=== PATIENT | male | born 1935 | race Caucasian/White ===

== ENCOUNTER 2017-03-08 06:50 | Outpatient (CLI) | payer OTHER, BC ==
[2017-03-08] MEDS ORDERED: DIATR MEGLU/DIATRIZ SOD 30 ML SOLUTION PO ONE (07:18)
== END 2017-03-08 17:50 | disposition home or self-care (01) ==
LOC: SCT 06:50
PROVIDERS: ATTEND Internal Medicine
DX: K57.30 Diverticulosis of large intestine without perforation or abscess without bleeding (principal); K42.9 Umbilical hernia without obstruction or gangrene; N28.1 Cyst of kidney, acquired; R16.1 Splenomegaly, not elsewhere classified; R16.0 Hepatomegaly, not elsewhere classified; Z96.643 Presence of artificial hip joint, bilateral
CPT/HCPCS: 74176; Q9964

== ENCOUNTER 2018-03-06 10:17 | Emergency (ER) | payer OTHER, MEDICARE ==
[~2018-03-06] VITALS: Ht 167.6 cm; Wt 95.3 kg
[2018-03-06 10:25] VITALS: BP_SYST 156
[2018-03-06] MEDS ORDERED: CALC-1036 PO (10:40)
[2018-03-06] MEDS ORDERED: ROSU10TA PO (10:40)
[2018-03-06] MEDS ORDERED: ASPI-1063 PO (10:40)
[2018-03-06] MEDS ORDERED: LOSA100T11 PO (10:40)
[2018-03-06] MEDS ORDERED: TAMS-11 PO (10:40)
[2018-03-06] MEDS ORDERED: GLIP5TAB13 PO (10:40)
[2018-03-06] MEDS ORDERED: SODI650T PO (10:40)
[2018-03-06] MEDS ORDERED: ERGO500043 PO (10:40)
[2018-03-06] MEDS ORDERED: CYAN100067 PO (10:40)
[2018-03-06] MEDS ORDERED: NOR10 PO (10:40)
[2018-03-06 11:24] VITALS: BP_SYST 156
== END 2018-03-06 11:25 | disposition home or self-care (01) ==
LOC: SED 10:17
DX: S30.813A Abrasion of scrotum and testes, initial encounter (principal); E11.22 Type 2 diabetes mellitus with diabetic chronic kidney disease; N18.9 Chronic kidney disease, unspecified; Z88.5 Allergy status to narcotic agent; Z85.46 Personal history of malignant neoplasm of prostate; Z79.899 Other long term (current) drug therapy; X58.XXXA Exposure to other specified factors, initial encounter; Y93.E1 Activity, personal bathing and showering; Y92.091 Bathroom in other non-institutional residence as the place of occurrence of the external cause; Y99.8 Other external cause status
CPT/HCPCS: 99283

== ENCOUNTER 2018-12-23 08:52 | Outpatient (CLI) | payer OTHER, MEDICARE ==
[~2018-12-23 08:52] MED LIST: ASPI-1153 PO; CALC-1036 PO; CYAN100010 PO; ERGO500020 PO; GLIP5TAB13 PO; LOSA100T3 PO; NOR10 PO; ROSU10TA PO; SODI650T PO; TAMS-11 PO
== END 2018-12-23 21:22 | disposition home or self-care (01) ==
LOC: SUS 08:52
PROVIDERS: ATTEND Internal Medicine
DX: N28.1 Cyst of kidney, acquired (principal); R53.81 Other malaise
CPT/HCPCS: 76770

== ENCOUNTER 2019-07-03 13:35 | Outpatient (CLI) | payer OTHER, MEDICARE ==
[~2019-07-03 13:35] MED LIST changes: -ROSU10TA PO; +ROSU10TA2 PO
== END 2019-07-03 21:24 | disposition home or self-care (01) ==
LOC: SRD 13:35
DX: C90.00 Multiple myeloma not having achieved remission (principal); I67.2 Cerebral atherosclerosis
CPT/HCPCS: 70260-TC; 72110; 72170-TC

== ENCOUNTER 2020-06-01 19:28 | Inpatient (IN) | payer OTHER, MEDICARE, SELFPAY ==
[~2020-06-01] VITALS: Ht 165.1 cm; Wt 93.0 kg
[~2020-06-01 19:28] MED LIST changes: -ASPI-1153 PO; +ASPI-1393 PO
[2020-06-01 19:38] VITALS: BP_SYST 157
--- NOTE | 2020-06-01 20:10 | NUR ---
Guido mckenzie in [facility] - 06/01/20 at 2252 by KAMILA FREDDY Stark at bedside examining patient.
[2020-06-01] MEDS ORDERED: PANTOPRAZOLE SODIUM 40 MG/VIAL (PROTONIX) IVP ONE ×2 (20:15→23:00)
--- NOTE | 2020-06-01 20:49 | NUR ---
Placed in room 03 . Placed on monitoring manager, blood pressure machine and pulse oximeter. To gown for exam. Side rails up.
--- NOTE | 2020-06-01 20:50 | NUR ---
ER Dr. Stark at bedside examining patient.
--- NOTE | 2020-06-01 20:55 | NUR ---
Pt presents to the ER for GI bleeding and low hemoglobin as per pt's PCP. Denies headache, n/v/d, sick contacts. Pt has hx of codeine. Pt brought in labs with him.Pt states he has SOB whgen walking.
[2020-06-01 20:56] LABS: BASOPHILS # (AUTO) 0.1 K/uL (0.0-0.2); BASOPHILS % (AUTO) 0.8 % (0.0-2.0); EOSINOPHILS # (AUTO) 0.2 K/uL (0.0-0.4); EOSINOPHILS % (AUTO) 1.9 % (0.0-4.0); LYMPHOCYTES % (AUTO) 11.3 % (20.5-51.5); MEAN CORPUSCULAR HEMOGLOBIN 31 pg (27-31); MEAN CORPUSCULAR HGB CONC 33 % (32-36); MEAN CORPUSCULAR VOLUME 94 fL (79.0-98.0); MONOCYTES # (AUTO) 0.8 K/uL (0.0-1.0); MONOCYTES % (AUTO) 8.7 % (1.7-9.3); NEUTROPHILS # (AUTO) 6.7 K/uL (1.8-7.7); NEUTROPHILS % (AUTO) 77.3 % (40.0-70.0); PLATELET COUNT (AUTO) 329 K/uL (130-430); RED BLOOD CELL COUNT(AUTO) 2.04 MIL/uL (4.2-6.2); RED CELL DISTRIBUTION WIDTH 15.7 % (9.0-15.0); WHITE BLOOD COUNT (AUTO) 8.7 K/uL (4.8-10.8)
--- NOTE | 2020-06-01 21:00 | NUR ---
# 20 gauge angiocath placed to r hand . Use of asceptic technique. Opsite placed over site. Blood return noted. Flushed with 10 cc of normal saline. No evidence of infiltration noted. Patient tolerated well.
[2020-06-01 21:10] LABS: ANION GAP 10 (5-15); CALCIUM 8.9 mg/dL (8.4-11.0); CHLORIDE 103 mmol/L (98-107); CREATININE 3.23 mg/dL (0.55-1.30); GLUCOSE 135 mg/dL (70-99); POTASSIUM 4.6 mmol/L (3.5-5.1); SODIUM SERUM 137 mmol/L (136-145); UREA NITROGEN, BLOOD 51 mg/dL (8-21)
[2020-06-01 21:12] LABS: PROTHROMBIN TIME 9.9 SECS (9.5-12.5)
[2020-06-01 21:16] LABS: ALANINE AMINOTRANSFERASE 25 U/L (12-78); ASPARTATE AMINOTRANSFERASE 15 U/L (10-37); TOTAL BILIRUBIN 0.2 mg/dL (0.0-1.0)
[2020-06-01 21:30] LABS: HEMOGLOBIN 6.4 g/dL (14.0-18.0)
[2020-06-01 21:31] LABS: HEMATOCRIT 19.2 % (36-54)
--- NOTE | 2020-06-01 21:50 | NUR ---
Patient will be admitted to care of Dr Bright. Admitted to TELE unit. Belongings list completed. Complete and up to date summary report printed. SBAR report to be given at bedside with opportunity for questions.
--- NOTE | 2020-06-01 22:00 | NUR ---
CONSENT AND BLOOD FORMS IN CHART, DONE BY LEONEL SPENCER.
[2020-06-01] MEDS ORDERED: ROSU20TA32 PO (22:08)
[2020-06-01] MEDS ORDERED: CALC-1263 PO (22:08)
[2020-06-01] MEDS ORDERED: METR500T PO (22:08)
[2020-06-01] MEDS ORDERED: CIPR-211 PO (22:08)
[2020-06-01] MEDS ORDERED: FLO44 INH (22:08)
--- NOTE | 2020-06-01 22:08 | NUR ---
Medication reconciliation completed with information provided by Dr Bright. Any prior medication reconciliation on file was reviewed and corrected.
[2020-06-01 22:16] LABS: TOTAL IRON BIND. CAPACITY 255 ug/dL (250-450)
--- NOTE | 2020-06-01 22:51 | NUR ---
Dr. Bright at bedside examining patient.
[2020-06-01] MEDS ORDERED: ACETAMINOPHEN 325 MG TABLET PO PRN (23:00)
[2020-06-01] MEDS ORDERED: POTASSIUM CHLORIDE 10 MEQ in NACL 0.9% 1,000 ML IV SCH (23:00)
[2020-06-01] MEDS ORDERED: DIPHENHYDRAMINE INJ 50 MG/ML VIAL IVP PRN (23:00)
[2020-06-01] MEDS: NACL 0.9% 1,000 ML IV SCH (23:30)
[2020-06-01] MEDS ORDERED: DEXTROSE 50% JECT 50 ML DISP.SYRIN IVP PRN (23:30)
[2020-06-01] MEDS ORDERED: INSULIN REGULAR, HUMAN 100 UNITS/ML, 10 ML VIAL (humuLIN R) SUBCUT PRN (23:30)
[2020-06-01] MEDS ORDERED: metroNIDAZOLE 500 MG TABLET PO ONE (23:30)
[2020-06-01] MEDS ORDERED: CIPROFLOXACIN HCL 500 MG TABLET PO ONE ×2 (23:30)
--- NOTE | 2020-06-01 23:40 | NUR ---
ADMISSION: The patient, PAGE LU, 85 y/o, M admitted by JEET FERRER MD, was given written information regarding hospital policies, unit procedures and contact persons. Valuables were checked and pt was oriented to his room and surrounding.
[2020-06-01 23:45] VITALS: BP_SYST 131
--- NOTE | 2020-06-02 01:05 | NUR ---
BT INITIATION: Consent signed by pt per agreeing to administration of blood. Blood has been typed and crossmatched. Blood was sent from blood bank. Information on unit of blood checked against patient wristband at bedside by two nurses. All information matched. Patient informed of potential complications associated with blood transfusion. Informed of possible transfusion reaction symptoms. Aware of need to notify nurse at once of itching, shortness of breath, flushing, feeling of impending doom, or other symptoms not previously present. Vital signs taken within 5 minutes prior to initiation of transfusion. RN will remain with patient for first 15 minutes of transfusion at which time vital signs will be re-assessed.
--- NOTE | 2020-06-02 01:06 | NUR ---
CONSULT: CONSULT CALLED FOR DR. DAVISON I SPOKE WITH KHLOE MOON REASON FOR CONSULT: FI BLEEDING REQUESTING CONSULT: DR. FERRER SYSTEMS ACCOUNTANT PHONE NUMBER: [phone] Addendum: 06/02/20 at [address]/ REASON FOR CONSULT: GI BLEED
--- NOTE | 2020-06-02 01:20 | NUR ---
Blood transfusion is in progress and no transfusion reaction noted. VSS. IV site is patent and without any signs of infiltration. Call light is with pt and bed is in lowest/locked positions.
--- NOTE | 2020-06-02 02:05 | NUR ---
First unit PRBC transfusion is transfusing well. Pt denies any discomfort. Fall and safety precautions are in place.
--- NOTE | 2020-06-02 03:20 | NUR ---
First unit PRBC completely transfused and no transfusion reaction noted.
--- NOTE | 2020-06-02 03:40 | NUR ---
2nd unit PRBC transfusion started in right hand. IV site is without any signs of infiltration. RN is remaining with pt during first 15 minutes.
[2020-06-02 03:41] LABS: BILIRUBIN,URINE NEGATIVE (NEGATIVE); CLARITY/URINE CLEAR (CLEAR); COLOR,URINE YELLOW (YELLOW); GLUCOSE,URINE NEGATIVE (NEGATIVE); KETONES,URINE NEGATIVE (NEGATIVE); LEUKOCYTE ESTERASE ,URINE NEGATIVE (NEGATIVE); NITRITE, URINE NEGATIVE (NEGATIVE); PROTEIN URINE 2+ (NEGATIVE); UROBILINOGEN,URINE 0.2 (0.2-1.0)
[2020-06-02 03:47] LABS: BLOOD, URINE TRACE (NEGATIVE)
--- NOTE | 2020-06-02 03:55 | NUR ---
VSS. No transfusion reaction noted. Blood transfusion is in progress. Pt is resting comfortably in bed. Call light is with pt and bed is in the lowest/locked positions.
[2020-06-02 04:31] LABS: BACTERIA,URINE FEW /HPF (None Seen); WBC,URINE 0-3 /HPF (0-3)
[2020-06-02] MEDS: NACL 0.9% 1,000 ML IV SCH (06:08)
[2020-06-02] MEDS: metroNIDAZOLE 500 MG TABLET PO SCH ×3 (06:30→22:31)
--- NOTE | 2020-06-02 07:45 | NUR ---
OPENING NOTES RECEIVED PT IN BED, PT IS AAOX3, DENIES PAIN, NO SOB, NO FEVER. SAFETY PRECAUTION IN PLACE. BED ALARM ON, CALL LIGHT IN REACH, BED IN LOW POSITION, LOCKED IN PLACE, ENCOURAGED PT TO CALL FOR ASSIST AND PAIN MEDS OR ANY CONCERNS. WILL CONT TO MONITOR.
[2020-06-02 07:49] VITALS: BP_SYST 130
[2020-06-02] MEDS: CIPROFLOXACIN HCL 500 MG TABLET PO SCH ×2 (08:08→22:32)
[2020-06-02] MEDS: ATORVASTATIN 20 MG TABLET PO SCH (08:08)
[2020-06-02] MEDS: TAMSULOSIN HCL 0.4 MG CAP PO SCH (08:09)
[2020-06-02] MEDS: amLODIPine BESYLATE 10 MG TABLET PO SCH (08:09)
[2020-06-02] MEDS: SODIUM BICARBONATE 650 MG TABLET PO SCH ×3 (08:09→22:31)
[2020-06-02] MEDS: PANTOPRAZOLE SODIUM 40 MG/VIAL (PROTONIX) IVP SCH ×2 (08:09→22:31)
[2020-06-02] MEDS ORDERED: CALCIUM CARBONATE/VITAMIN D3 1 TAB TABLET PO SCH (09:00)
[2020-06-02] MEDS ORDERED: CIPROFLOXACIN HCL 500 MG TABLET PO SCH (09:00)
[2020-06-02] MEDS ORDERED: LOSARTAN POTASSIUM 50 MG TABLET (COZAAR) PO SCH (09:00)
--- NOTE | 2020-06-02 11:50 | NUR ---
PT SIGNED CONSENT FOR EGD IN AM. PER PT, DR DAVISON SPOKE WITH HIM ABOUT THE PROCEDURE.
[2020-06-02 11:59] LABS: BASOPHILS # (AUTO) 0.1 K/uL (0.0-0.2); BASOPHILS % (AUTO) 0.8 % (0.0-2.0); EOSINOPHILS # (AUTO) 0.2 K/uL (0.0-0.4); EOSINOPHILS % (AUTO) 2.4 % (0.0-4.0); HEMATOCRIT 24.6 % (36-54); HEMOGLOBIN 8.4 g/dL (14.0-18.0); LYMPHOCYTES # (AUTO) 0.7 K/uL (1.0-5.5); MEAN CORPUSCULAR HEMOGLOBIN 31 pg (27-31); MEAN CORPUSCULAR HGB CONC 34 % (32-36); MEAN CORPUSCULAR VOLUME 92 fL (79.0-98.0); MONOCYTES # (AUTO) 0.5 K/uL (0.0-1.0); MONOCYTES % (AUTO) 6.4 % (1.7-9.3); NEUTROPHILS # (AUTO) 6.6 K/uL (1.8-7.7); NEUTROPHILS % (AUTO) 81.4 % (40.0-70.0); PLATELET COUNT (AUTO) 280 K/uL (130-430); RED BLOOD CELL COUNT(AUTO) 2.69 MIL/uL (4.2-6.2); RED CELL DISTRIBUTION WIDTH 15.4 % (9.0-15.0); WHITE BLOOD COUNT (AUTO) 8.1 K/uL (4.8-10.8)
[2020-06-02 12:14] LABS: ALANINE AMINOTRANSFERASE 23 U/L (12-78); ALBUMIN 2.7 g/dL (3.4-4.8); ANION GAP 9 (5-15); ASPARTATE AMINOTRANSFERASE 16 U/L (10-37); CALCIUM 8.1 mg/dL (8.4-11.0); CHLORIDE 107 mmol/L (98-107); CREATININE 2.59 mg/dL (0.55-1.30); GLUCOSE 122 mg/dL (70-99); PHOSPHORUS 3.6 mg/dL (2.7-4.5); POTASSIUM 4.5 mmol/L (3.5-5.1); SODIUM SERUM 138 mmol/L (136-145); TOTAL BILIRUBIN 0.7 mg/dL (0.0-1.0); UREA NITROGEN, BLOOD 43 mg/dL (8-21)
--- NOTE | 2020-06-02 16:33 | NUR ---
CONSULT NEPHROLOGY AMELIA/CKD DR LOPEZ, EMILY [phone] S/W [facility] OFFICE
--- NOTE | 2020-06-02 16:55 | NUR ---
P.T. NOTES P.T. EVAL COMPLETED; REFER TO EVAL FOR DETAILS; ENDORSED TO NURSING.
[2020-06-02] MEDS ORDERED: EPOETIN ALFA 10,000 UNITS/ML VIAL SUBCUT SCH (17:00)
--- NOTE | 2020-06-02 18:20 | NUR ---
CLOSING NOTES, PATIENT HAS BEEN STABLE THE WHOLE SHIFT, NO C/O OF PAIN, NO SOB, BLOOD SUGAR CHECKS 2X, IT WAS BELOW 150, PT SIGNED CONSENT FOR EGD IN AM, PT WILL BE NPO AFTER MIDNIGHT. WILL ENDORSE TO NIGHT NURSE.
--- NOTE | 2020-06-02 19:35 | NUR ---
Pt was received lying in bed fully awake, alert and oriented x4. Skin is warm and dry to touch. No signs or symptoms of hypoglycemia or hyperglycemia noted. Pt was instructed on nothing by mouth after midnight for upper GI endoscopy tomorrow and pt verbalized understanding. IVF of NS is infusing well in right hand at 30ml/hr without any signs of infiltration. Fall and safety precautions are in place.
[2020-06-02 20:00] VITALS: BP_SYST 132
--- NOTE | 2020-06-02 22:31 | NUR ---
Accucheck 106 and no Insulin coverage needed. Skin remains warm and dry to touch. Pt declined HS snack, but drank 1 cup apple juice. IVF is infusing well in RH. Fall and safety precautions are in place.
[2020-06-03] VITALS: BP_SYST 136
--- NOTE | 2020-06-03 | NUR ---
Pt is sleeping comfortably in bed. NPO cone placed on pt's bedside table.
--- NOTE | 2020-06-03 02:00 | NUR ---
Pt is resting quietly in bed. IVF is infusing well in RH. Fall and safety precautions are in place.
--- NOTE | 2020-06-03 04:30 | NUR ---
IVF is infusing well in . Fall and safety precautions are in place.
[2020-06-03] MEDS: metroNIDAZOLE 500 MG TABLET PO SCH ×2 (05:51→14:18)
--- NOTE | 2020-06-03 06:11 | NUR ---
Pt is awake and resting quietly in bed. Accucheck 121 and no Insulin coverage needed. Skin remains warm and dry to touch. Pt is NPO for EGD today. IVF is infusing well in . Fall and safety precautions are in place.
[2020-06-03 06:50] LABS: BASOPHILS % (AUTO) 0.6 % (0.0-2.0); EOSINOPHILS # (AUTO) 0.3 K/uL (0.0-0.4); EOSINOPHILS % (AUTO) 3.3 % (0.0-4.0); HEMOGLOBIN 8.6 g/dL (14.0-18.0); LYMPHOCYTES # (AUTO) 0.8 K/uL (1.0-5.5); LYMPHOCYTES % (AUTO) 10.4 % (20.5-51.5); MEAN CORPUSCULAR HEMOGLOBIN 31 pg (27-31); MEAN CORPUSCULAR HGB CONC 34 % (32-36); MEAN CORPUSCULAR VOLUME 91 fL (79.0-98.0); MONOCYTES # (AUTO) 0.6 K/uL (0.0-1.0); MONOCYTES % (AUTO) 7.1 % (1.7-9.3); NEUTROPHILS # (AUTO) 6.2 K/uL (1.8-7.7); NEUTROPHILS % (AUTO) 78.6 % (40.0-70.0); PLATELET COUNT (AUTO) 310 K/uL (130-430); RED BLOOD CELL COUNT(AUTO) 2.74 MIL/uL (4.2-6.2); RED CELL DISTRIBUTION WIDTH 15.5 % (9.0-15.0); WHITE BLOOD COUNT (AUTO) 7.9 K/uL (4.8-10.8)
[2020-06-03 07:06] LABS: PROTHROMBIN TIME 10.1 SECS (9.5-12.5)
[2020-06-03 07:27] LABS: ANION GAP 11 (5-15); CALCIUM 8.4 mg/dL (8.4-11.0); CHLORIDE 107 mmol/L (98-107); CREATININE 2.53 mg/dL (0.55-1.30); GLUCOSE 120 mg/dL (70-99); POTASSIUM 4.6 mmol/L (3.5-5.1); SODIUM SERUM 138 mmol/L (136-145); UREA NITROGEN, BLOOD 39 mg/dL (8-21)
[2020-06-03] MEDS ORDERED: SIMETHICONE 40 MG/0.6 ML ML ONE (07:39)
[2020-06-03] MEDS ORDERED: MIDAZOLAM HCL 5 MG/5 ML VIAL ONE (07:39)
[2020-06-03] MEDS ORDERED: MEPERIDINE HCL/PF 100 MG/ML AMP ONE (07:39)
[2020-06-03 08:01] LABS: FOLATE (FOLIC ACID) 14.6 ng/mL (>3.0)
[2020-06-03] MEDS ORDERED: MEPERIDINE HCL/PF 100 MG/ML AMP IM ONE (08:30)
[2020-06-03] MEDS ORDERED: MIDAZOLAM HCL 5 MG/5 ML VIAL IVP ONE (08:30)
[2020-06-03] MEDS: TAMSULOSIN HCL 0.4 MG CAP PO SCH (10:00)
[2020-06-03] MEDS: SODIUM BICARBONATE 650 MG TABLET PO SCH ×2 (10:00→14:17)
[2020-06-03] MEDS: amLODIPine BESYLATE 10 MG TABLET PO SCH (10:00)
[2020-06-03] MEDS: CIPROFLOXACIN HCL 500 MG TABLET PO SCH (10:00)
[2020-06-03] MEDS: ATORVASTATIN 20 MG TABLET PO SCH (10:01)
[2020-06-03] MEDS: PANTOPRAZOLE SODIUM 40 MG/VIAL (PROTONIX) IVP SCH (10:01)
[2020-06-03 13:31] VITALS: BP_SYST 134
[2020-06-03] MEDS ORDERED: SIMETHICONE 40 MG/0.6 ML ML PO ONE (13:48)
[2020-06-03] MEDS ORDERED: MEPERIDINE HCL/PF 25 MG/ML DISP.SYRIN IVP ONE (13:48)
[2020-06-03] MEDS ORDERED: MIDAZOLAM HCL 2 MG/2 ML VIAL (VERSED) IVP ONE (13:48)
--- NOTE | 2020-06-03 14:45 | NUR ---
PATIENT EGD DONE TODAY NPO REMOVED REGULAR DIET TOLERATED NO BLEEDING OBSERVED WILL CONTINUE MONITOR CLOSE OBSERVATION
--- NOTE | 2020-06-03 15:26 | NUR ---
Dietitian Recommendations * Recommend CCHO, renal diet w/ Glucerna BID (ONS provides 440 kcal/day, 20 gm protein/day) HERMINIA ALDRIDGE Please refer to Nutrition Assessment for details. Addendum: 06/03/20 at [address] Amended: Links added.
[2020-06-03] MEDS ORDERED: PRO40 PO (16:09)
[2020-06-03] MEDS ORDERED: NEPH PO (16:18)
[2020-06-03 17:00] VITALS: BP_SYST 134
[2020-06-03 17:27] VITALS: BP_SYST 128
--- NOTE | 2020-06-03 17:52 | NUR ---
DISCHARGE NOTE FOR [facility] PATIENT DISCHARGE INSTRUCTION PROVIDED TO PT NEW/HOME MEDICATION DIET ACTIVITY MD FOLLOW UP PT VERBALIZED UNDERSTANDING WELL ALL BELONGS RELEASED IV HELP LOCK REMOVED PATIENT DISCHARGED TO HOME WITH FAMILY MEMBER AT 1750
--- NOTE | 2020-06-08 16:38 | NUR ---
Discharge Follow Up Phone Call Phoned patient, . Patient stated he was doing fine. He has made his follow up appointments. He filled his prescriptions and he is taking his medications as directed. He asked which unit he was on and I told him the Medical/Surgical Unit. No other questions or concerns.
== END 2020-06-03 17:40 | disposition home or self-care (01) | DRG 811 ==
LOC: SED 19:28 → SMU 21:48
PROVIDERS: ADMIT Internal Medicine; ATTEND Internal Medicine
PROC: 30233N1 Transfusion of Nonautologous Red Blood Cells into Peripheral Vein, Percutaneous Approach (ICD-10-PCS; 2020-06-02)
PROC: 0DB68ZX Excision of Stomach, Via Natural or Artificial Opening Endoscopic, Diagnostic (ICD-10-PCS; 2020-06-03)
PROC: 0DB98ZX Excision of Duodenum, Via Natural or Artificial Opening Endoscopic, Diagnostic (ICD-10-PCS; principal; 2020-06-03 08:00)
DX: D62 Acute posthemorrhagic anemia (principal); K57.91 Diverticulosis of intestine, part unspecified, without perforation or abscess with bleeding; N17.0 Acute kidney failure with tubular necrosis; E44.1 Mild protein-calorie malnutrition; E87.2 Acidosis; Q61.3 Polycystic kidney, unspecified; K57.92 Diverticulitis of intestine, part unspecified, without perforation or abscess without bleeding; K29.70 Gastritis, unspecified, without bleeding; E78.5 Hyperlipidemia, unspecified; E11.21 Type 2 diabetes mellitus with diabetic nephropathy; I12.9 Hypertensive chronic kidney disease with stage 1 through stage 4 chronic kidney disease, or unspecified chronic kidney disease; E11.22 Type 2 diabetes mellitus with diabetic chronic kidney disease; N18.9 Chronic kidney disease, unspecified; E66.9 Obesity, unspecified; Z96.643 Presence of artificial hip joint, bilateral; Z20.828 Contact with and (suspected) exposure to other viral communicable diseases; K26.9 Duodenal ulcer, unspecified as acute or chronic, without hemorrhage or perforation; Z88.5 Allergy status to narcotic agent; Z79.82 Long term (current) use of aspirin; Z79.899 Other long term (current) drug therapy; Z85.46 Personal history of malignant neoplasm of prostate; Z68.34 Body mass index [BMI] 34.0-34.9, adult
CPT/HCPCS: 36415; 36430; 43239; 76770; 80048; 80053; 81000-TC; 82607; 82746; 82962; 83540-TC; 83550-TC; 84100-TC; 85025; 85044-TC; 85610-TC; 85730-TC; 86886; 86900; 86901; 86920; 87081; 88305; 88312; 88313; 96374; 99291; C9113; J0885; J1815; J2175; J2250; J3465; J3480; J7030; J7040; P9021

== ENCOUNTER 2022-01-19 10:05 | Outpatient (CLI) | payer OTHER, MEDICARE ==
[~2022-01-19 10:05] MED LIST changes: -ASPI-1393 PO; -CALC-1036 PO; +CALC-1263 PO; +CIPR500T5 PO; -CYAN100010 PO; +FLO44 INH; -LOSA100T3 PO; +METR500T PO; +NEPH PO; +PRO40 PO; -ROSU10TA2 PO; +ROSU20TA32 PO
== END 2022-01-19 18:04 | disposition home or self-care (01) ==
LOC: SRD 10:05
PROVIDERS: ATTEND Internal Medicine Gastroenterology
DX: K57.30 Diverticulosis of large intestine without perforation or abscess without bleeding (principal)
CPT/HCPCS: 74270-TC